=== PATIENT | female | born 1970 | race Caucasian/White ===

== ENCOUNTER 2021-04-28 10:33 | Inpatient (IN) | payer MEDICARE, MEDICAID, SELFPAY ==
[2021-04-28 11:36] VITALS: BP 102/78; PULSE 93; RESP 20; TEMP 36.3; O2SAT 98
[2021-04-28] MEDS: hyDROXYzine 25 mg Capsule 50 MG PO ×2 (13:02→19:17)
[2021-04-28] MEDS: OLANZapine 5 mg ODT PO ×2 (13:02→20:46)
--- NOTE | 2021-04-28 13:02 | PC.NURSE ---
PRN VISTARIL & ZYPREXA ZYDIS VISTARIL 50 MG GIVEN PO WITH ZYPREXA ZYDIS 5 MG PO PER PT C/O INCREASED ANXIETY/PSYCHOSIS. PT PACING UNIT, MUMBLING TO HERSELF, OBSESSING ABOUT GETTING NENA PHONE NUMBER. MULTIPLE STAFF TRIED TO LOOK THROUGH CHART FOR NUMBER, UNABLE TO LOCATE PHONE NUMBER. PT NEEDS FREQUENT REDIRECTION FROM STAFF.
[2021-04-28 14:00] VITALS: BP 102/78; PULSE 93; RESP 20; TEMP 36.3; O2SAT 98
--- NOTE | 2021-04-28 14:50 | P.HP_ITS ---
Providers/Chief Complaint Admitting Physician: Mukul Rubio MD Chief Complaint: SI HPI NPU History of Present Illness Michelle Dao is a 50 year old female with a past history of schizoaffective disorder, who presented to the [facility] ED with psychosis and altered mental status and was transferred here after being medically stabilized and cleared. The ED note states: Patient is a 50-year-old female with a history of schizoaffective disorder and GERD, comes via ground ambulance with complaints of depression. Patient called EMS today to bring her in as she has been feeling sad and depressed. States people have been calling her hateful, and she wants to come in for help. Per triage note, she was brought in with EMS. Here she continues to mention a man's name, stating he is her boyfriend which she met on the Internet, but has not met in person. She wants this person to come pick her up for the from the ED. States she is also and an Internet contest to when a dereje to be her . Patient reports she is kind of homeless but also lives with someone who can take care of themselves. States her family will not take care of her. She denies any hallucinations, SI, or HI. Denies any N/V/D. Denies any smoking, alcohol use or drug use. Currently taking all drugs as prescribed and denies an overdose. Patient also has some leg swelling. States this occurs when she d rinks too much pop. She does have a history of DVT.... Patient has a past medical history of altered mental status (12/17/2012), CAP (community acquired pneumonia) (11/28/2012), DVT, GERD (gastroesophageal reflux disease), MRSA (methicillin-resistant staph aureus) culture positive (05/26/2019) schizoaffective schizophrenia, sepsis, unspecified (11/29/2012), and urinary frequency (12/17/2012). The patient was admitted to the neuropsychiatric unit for definitive treatment of these issues. She is not able to report her history very easily. 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 She says she came to the hospital because she is depressed. She says that her boyfriend has been mean to her, and says that they get into frequent arguments, but does not endorse being the victim of violence. She denies suicidal and homicidal ideation. She denies auditory and visual hallucinations. She does not say that she is taking medications at this time, she did arrive with recently prescribed bottles of Abilify, Lunesta, and mirtazapine.. Meds NPU Home Medications Medication Instructions Recorded Confirmed Last Taken Type aripiprazole [Abilify] 15 mg PO BEDTIME 04/28/21 04/28/21 Unknown History eszopiclone [Lunesta] 3 mg PO BEDTIME 04/28/21 04/28/21 Unknown History mirtazapine 45 mg PO BEDTIME 04/28/21 04/28/21 Unknown History Allergies Allergy/AdvReac Type Severity Reaction Status Date / Time acetaminophen [From Tylenol] Allergy ALGY-Rash Verified 04/28/21 12:55 Mental Status Exam MSE Comments: I met with the patient in the day room. Prior to meeting, she frequently approached me in the hallway, etc. and asked me for Isaac's phone number, or if Isaac is going to come get her. She is not really able to cooperate and makes poor eye contact. Speech is repetitive and with disarticulation. She is alert and oriented to person and situation. Attention is poor. Memory is poor. Mood is anxious, and affect is mood congruent. Thought process is concrete. Thought content: She has delusions that she can go live with the band, that she can when a man in a contest, etc. She denies auditory or visual hallucinations. She denies suicidal and homicidal ideation. Insight and judgment are extremely impaired. Vitals/I&O/Wt Last Vital Signs Temp 97.3 F L 04/28/21 11:36 Pulse 93 04/28/21 11:36 Resp 20 H 04/28/21 11:36 BP 102/78 04/28/21 11:36 Pulse Ox 98 04/28/21 11:36 A&P Assessment and plan (1) Acute psychosis: Status: Acute (2) Adjustment disorder with depressed mood: Status: Acute Additional A&P Information The patient is a 50-year-old woman with a history of schizoaffective disorder who presented to the [facility] ED with psychosis and altered mental status. She will be restarted on medication, and we will sort out placement issues when she is psychiatrically stable. 1. Continue current medication. Abilify 15 mg daily and mirtazapine 45 mg at bedtime. We will not prescribe Lunesta at this time. 2. Continue every 15 minute checks for safety. 3. Encourage individual, group and milieu therapies. 4. Encourage sober living treatment after discharge at the highest level of care to which he is willing to commit. Involuntary Hold Information 96 Hour Hold: 96 Hour Involuntary Admission: No Attestations NPU Medical Necessity Statement*: Psychiatric hospitalization is medically necessary to prevent access to lethal means, to reevaluate medication, and to coordinate a safe discharge. Patient will be in the hospital for over 2 mid nights. Likely length of stay is 3 to 5 days. Coding Level of Care Code Acute Bulb Packer for Richie Rodriguez Diagnoses Acute psychosis F23 Adjustment disorder with depressed mood F43.21
[2021-04-28] MEDS: haloperidol 5 mg Tablet PO (15:38)
--- NOTE | 2021-04-28 15:39 | PC.NURSE ---
PRN HALDOL 5 MG GIVEN PO PER PT C/O AGITATION. PT UP TO DESK, PRESSURED RAMBLING SPEECH. REPEATING HERSELF OVER AND OVER, NOT MAKING SENSE TO STAFF. GETTING AGITATED BECAUSE STAFF CAN'T UNDERSTAND WHAT SHE IS SAYING. WILL CONT TO MONITOR
[2021-04-28] MEDS: ARIPiprazole 30 mg Tablet 15 MG PO (20:37)
[2021-04-28] MEDS: mirtazapine 30 mg Tablet 45 MG PO (20:39)
[2021-04-28] MEDS: trazodone 50 mg Tablet PO (20:40)
--- NOTE | 2021-04-28 20:50 | PC.NURSE ---
given Zyprexa 5mg and Trazodone 50mg PO for agitation.
[2021-04-28 21:24] VITALS: BP 107/72; PULSE 86; RESP 15; TEMP 36.8; O2SAT 94
[2021-04-29] MEDS: trazodone 50 mg Tablet PO (01:23)
[2021-04-29] MEDS: hyDROXYzine 25 mg Capsule 50 MG PO (01:24)
--- NOTE | 2021-04-29 01:24 | PC.NURSE ---
Patient at nurses station anxious and unable to sleep.50mg vistaril PO, 50mg Trazodone PO given.
[2021-04-29 06:00] VITALS: BP 101/67; PULSE 75; RESP 17; TEMP 36.8; O2SAT 96
--- NOTE | 2021-04-29 07:51 | PC.NUTR ---
Nutrition note: Triggered in EMR for low BMI, however ht previously entered as 53 ft. Has been corrected. No other nutrition risk noted. Will assess at LOS.
--- NOTE | 2021-04-29 14:33 | P.DS_ITS ---
Diagnoses at Discharge Discharge Diagnosis (1) Acute psychosis: Status: Resolved (2) Adjustment disorder with depressed mood: Status: Chronic Reason for Visit Reason for Visit: SI Brief History: Michelle Dao is a 50 year old female with a past history of schizoaffective disorder, who presented to the [facility] ED with psychosis and altered mental status and was transferred here after being medically stabilized and cleared. The ED note states: Patient is a 50-year-old female with a history of schizoaffective disorder and GERD, comes via ground ambulance with complaints of depression. Patient called EMS today to bring her in as she has been feeling sad and depressed. States people have been calling her hateful, and she wants to come in for help. Per triage note, she was brought in with EMS. Here she continues to mention a man's name, stating he is her boyfriend which she met on the Internet, but has not met in person. She wants this person to come pick her up for the from the ED. States she is also and an Internet contest to when a dereje to be her . Patient reports she is kind of homeless but also lives with someone who can take care of themselves. States her family will not take care of her. She denies any hallucinations, SI, or HI. Denies any N/V/D. Denies any smoking, alcohol use or drug use. Currently taking all drugs as prescribed and denies an overdose. Patient also has some leg swelling. States this occurs when she drinks too much pop. She does have a history of DVT.... Patient has a past medical history of altered mental status (12/17/2012), CAP (community acquired pneumonia) (11/28/2012), DVT, GERD (gastroesophageal reflux disease), MRSA (methicillin-resistant staph aureus) culture positive (05/26/2019) schizoaffective schizophrenia, sepsis, unspecified (11/29/2012), and urinary frequency (12/17/2012). The patient was admitted to the neuropsychiatric unit for definitive treatment of these issues. She is not able to report her history very easily. 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 She says she came to the hospital because she is depressed. She says that her boyfriend has been mean to her, and says that they get into frequent arguments, but does not endorse being the victim of violence. She denies suicidal and homicidal ideation. She denies auditory and visual hallucinations. She does not say that she is taking medications at this time, she did arrive with recently prescribed bottles of Abilify, Lunesta, and mirtazapine. Hospital Course Hospital Course Michelle Dao is a 50 year old female with a past history of schizoaffective disorder, who presented to the [facility] ED with psychosis and altered mental status. She was admitted to the neuropsychiatric unit for definitive treatment of these issues. On the unit she slowly acclimated to the individual, group and milieu therapies. There were some mild psychotic symptoms present initially which resolved with the home medications being restarted. She was receptive to treatment team recommendations and showed modest improvement and was able to contract for safety prior to discharge. She says she lives with her boyfriend and her sister helps to take care of her too. During the hospitalization, patient had routine laboratory studies which were within normal limits except for few outliers. Additionally there was a general medical evaluation which was also within normal limits and revealed no new acute processes. Discharge Summary: At the time of discharge, psychosis and lethality were denied. Mood and anxiety were well managed. Patient endorsed a plan to avoid all drugs of abuse and follow-up with the aftercare recommendations of the treatment team. Patient was evaluated and deemed to be absent credible lethality, and had achieved the maximum benefit from an inpatient hospitalization, so was discharged. Involuntary Hold Information 96 Hour Hold: 96 Hour Involuntary Admission: No Mental Status Exam MSE Comments: The patient made good eye contact and was cooperative and open to the exam. Some psychomotor agitation. Speech was had a regular rate and rhythm without pressure, but with significant dysarticulation, which is her baseline. She was alert and oriented to person, place, time, and situation. Attention and concentration were intact to exam Memory was fairly good to exam. Mood is improved without depression and anxiety. Affect is much brighter. Thought process: Logical and goal directed. No racing thoughts or flight of ideas. Thought content: She denies auditory and visual hallucinations. There are no delusions noted. No suicidal or homicidal ideation. She is excited to return home. Insight and judgment are improved. Discharge Data Vitals: Last Vital Signs Temp 98.3 F 04/29/21 06:00 Pulse 75 04/29/21 06:00 Resp 17 04/29/21 06:00 BP 101/67 04/29/21 06:00 Pulse Ox 96 04/29/21 06:00 Discharge Plan Discharge Patient Disposition: Home Condition: Stable Prescriptions: Continued mirtazapine 45 mg Tablet 45 mg PO BEDTIME 30 Days Qty: 30 RF: 0 Abilify 15 mg Tablet 15 mg PO BEDTIME 30 Days Qty: 30 RF: 0 Discontinued eszopiclone [Lunesta] 3 mg Tablet 3 mg PO BEDTIME RF: 0 Discharge Orders: Discharge Order (Routine); Ordered 04/29/21 Ordered By: Mukul Rubio Referrals: [facility] [Other] - 05/15/21 10:00 am (Appointment on 05/15/21 @ 10:00am ) [facility] [Other] - 05/06/21 9:15 am (Appointment with Dr. Ghosh on 05/06/21 @ 9:15am.) Discharge Diet: Usual diet Discharge Activity: Resume usual activity Patient Instructions: Depression, Mirtazapine (By mouth), Aripiprazole (By mouth), Brief Psychotic Disorder (DC), Opioid Safety Discharge Attestations NPU Time Spent in Discharge Care*: less than 30 min Specific Discharge Activities: Specific discharge activities: educating patient, discussing with caser up/social workers/dc planners, documenting/other paperwork and evaluating patient/reviewing data Status at Discharge: Cognitive status at discharge: mildly impaired cognition , Behavioral status at discharge: cooperative , Functional status at discharge: independent ambulation Overall status at discharge: patient is back to baseline Coding Level of Care Code Acute Chg FW DC note Diagnoses Acute psychosis F23 Adjustment disorder with depressed mood F43.21
[2021-04-29 15:08] VITALS: BP 101/67; PULSE 75; RESP 17; TEMP 36.8; O2SAT 96
== END 2021-04-29 17:16 | disposition home or self-care (01) | DRG 885 ==
PROVIDERS: Admitting Provider Psychiatry & Neurology Child & Adolescent Psychiatry; Visit Provider Psychiatry & Neurology Child & Adolescent Psychiatry
DX: F23 Brief psychotic disorder (principal); F43.21 Adjustment disorder with depressed mood; F25.9 Schizoaffective disorder, unspecified
CPT/HCPCS: 90935